=== PATIENT | female | born 1940 | race Caucasian/White ===

== ENCOUNTER → 2021-09-29 | Outpatient (CLI) | payer MEDICARE ==
[2015-01-29 13:17] VITALS: BP 151/72
[~2021-09-29] MED LIST: ALBU2.5V8 INH; ALPR0.5T6 PO; ASPI-39 PO; CALC-337 PO; LEVO100T5 PO; LOVA20TA2 PO; MULT-658 PO; OLME1TAB23 PO; OMEP40CA7 PO; OXYC1TAB15 PO; SOTA80TA48 PO
--- NOTE | 2021-09-29 14:04 | KCIC ---
EXAM: XR CERVICAL SPINE 2-3V 09/29/2021 8:45 AM CLINICAL INDICATION: Cervical radiculopathy, left shoulder pain. History of rotator cuff surgery COMPARISON: None TECHNIQUE: AP, lateral, swimmer's, and odontoid views of the cervical spine FINDINGS: No acute fracture. There is minimal anterolisthesis at C3-C4, C4-C5, C5-C6, and C6-C7. The re is mild disc space narrowing throughout the cervical spine. The dens is partially obscured but sym metric and the ring of C1. Prevertebral soft tissues normal. There is multilevel severe facet arthros is, greater on the left. IMPRESSION: 1. No acute osseous abnormality. 2. Mild degenerative disc disease. 3. Severe multilevel facet arthrosis. Electronically signed by: Elvira Barker MD (09/29/2021 2:02 PM) [id number]
== END ==
LOC: KCIC 08:43
PROVIDERS: ATTEND Nurse Practitioner
DX: M47.22 Other spondylosis with radiculopathy, cervical region (principal); M43.12 Spondylolisthesis, cervical region; M48.02 Spinal stenosis, cervical region; M50.10 Cervical disc disorder with radiculopathy, unspecified cervical region
CPT/HCPCS: 72040

== ENCOUNTER → 2021-10-06 | Outpatient (CLI) | payer MEDICARE ==
[2015-01-29 13:17] VITALS: BP 151/72
--- NOTE | 2021-10-06 14:12 | KCIC ---
EXAM: MRI CERVICAL SPINE WITHOUT CONTRAST. HISTORY: Neck pain, remote injury, left upper extremity radiculopathy. TECHNIQUE: Magnetic resonance images of the cervical spine were obtained without contrast. COMPARISON: None. FINDINGS: There is 2 mm anterolisthesis at C6-7. No fractures are identified. There is mild degenerat geena disc disease at C5-6. The craniocervical junction is unremarkable. There is no abnormal cord sign al. At C2-3, there is no clear stenosis. At C3-4, there is a minimal posterior disc bulge. Uncovertebral osteoarthritis is mild bilaterally. F acet osteoarthritis is moderate to severe bilaterally. Neural foraminal stenosis is at least moderate bilaterally. At C4-5, there is a small posterior disc bulge. Left facet osteoarthritis is moderate to severe. Unco vertebral osteoarthritis is mild to moderate bilaterally. Neural foraminal stenosis appears moderate to severe on the left and mild on the right. At C5-6, there is a minimal posterior disc bulge. Facet osteoarthritis is moderate bilaterally. Left neural foraminal stenosis appears mild. At C6-7, left facet osteoarthritis is moderate. Left neural foraminal stenosis is mild. IMPRESSION: 1. Mild grade 1 anterolisthesis at C6-7 from facet osteoarthritis. 2. Moderate to severe facet osteoarthritis bilaterally result in up to moderate/severe multilevel leigh ann ateral neural foraminal stenosis as above. No central canal stenosis. Electronically signed by: Fahad Francis MD (10/06/2021 2:10 PM) [id number]
== END ==
LOC: KCIC MRI 08:59
PROVIDERS: ATTEND Nurse Practitioner
DX: M47.812 Spondylosis without myelopathy or radiculopathy, cervical region (principal); M43.12 Spondylolisthesis, cervical region; M50.31 Other cervical disc degeneration, high cervical region; M48.02 Spinal stenosis, cervical region
CPT/HCPCS: 72141